=== PATIENT | female | born 1980 | race Caucasian/White ===

== ENCOUNTER 2017-06-06 16:05 | Emergency (ER) | payer BC ==
[~2017-06-06] VITALS: Ht 165.1 cm; Wt 64.0 kg
[2017-06-06 16:16] VITALS: BP 102/68
[2017-06-06] MEDS ORDERED: LIDOCAINE 1%, 20ML ONE (16:28)
[2017-06-06] MEDS ORDERED: LIDOCAINE 1%, 20ML SQ ONE (16:30)
[2017-06-06] MEDS ORDERED: LIDOCAINE 2% VISCOUS, 100ML MM ONE (16:30)
[2017-06-06] MEDS ORDERED: BACITRACIN ZINC OINT 500U/GM, 0.9 GM TP ONE (16:30)
[2017-06-06] MEDS ORDERED: LIDOCAINE GEL 2%, 5ML ONE (16:33)
[2017-06-06] MEDS ORDERED: PLEASE ENTER ALLERGIES MC SCH ×2 (17:00)
[2017-06-06] MEDS ORDERED: LIDOCAINE 2% VISCOUS 15 ML UDC MM ONE (17:00)
[2017-06-06] MEDS ORDERED: BACITRACIN ZINC OINT 500U/GM, 0.9 GM ONE (17:26)
== END 2017-06-06 17:50 | disposition home or self-care (01) ==
LOC: ED 17:39
DX: S51.811A Laceration without foreign body of right forearm, initial encounter (principal); S40.211A Abrasion of right shoulder, initial encounter; S70.211A Abrasion, right hip, initial encounter; V19.9XXA Pedal cyclist (driver) (passenger) injured in unspecified traffic accident, initial encounter; Y93.55 Activity, bike riding; Y99.8 Other external cause status; Y92.488 Other paved roadways as the place of occurrence of the external cause
CPT/HCPCS: 12002; 99283

== ENCOUNTER 2019-05-01 12:36 | Outpatient (CLI) | payer OTHER | END 2019-05-01 23:59 | disposition home or self-care (01) | LOC: LAB 12:36 | PROVIDERS: ATTEND Family Medicine | DX: E04.9 Nontoxic goiter, unspecified (principal) | CPT/HCPCS: 36415; 80053; 80061; 84439; 84443; 84480; 85025 ==

== ENCOUNTER 2019-09-18 09:10 | Outpatient (CLI) | payer OTHER | END 2019-09-18 23:59 | disposition home or self-care (01) | LOC: LAB 09:10 | PROVIDERS: ATTEND Obstetrics & Gynecology | DX: O09.512 Supervision of elderly primigravida, second trimester (principal); Z3A.00 Weeks of gestation of pregnancy not specified | CPT/HCPCS: 36415; 82105; 82677; 84702; 86336 ==

== ENCOUNTER → 2019-09-22 | Outpatient (CLI) | payer OTHER | END | disposition home or self-care (01) | LOC: LAB 17:28 | PROVIDERS: ATTEND Student in an Organized Health Care Education/Training Program | DX: O9A.212 Injury, poisoning and certain other consequences of external causes complicating pregnancy, second trimester (principal); O26.892 Other specified pregnancy related conditions, second trimester; Z67.91 Unspecified blood type, Rh negative; Z3A.00 Weeks of gestation of pregnancy not specified | CPT/HCPCS: 36415; 85460; 86850; 86900 ==

== ENCOUNTER → 2019-10-04 | Outpatient (CLI) | payer OTHER | END | disposition home or self-care (01) | LOC: CFH 10:26 | PROVIDERS: ATTEND Obstetrics & Gynecology | CPT/HCPCS: 76805 ==

== ENCOUNTER → 2019-11-15 | Outpatient (CLI) | payer OTHER ==
[2019-11-15 19:03] LABS: MEAN CORPUSCULAR HEMOGLOBIN 32.8 pg (27.0-34.8); MEAN CORPUSCULAR VOLUME 96.6 fL (80-100); PLATELET COUNT 218 x10^3/uL (130-400); RED CELL DISTRIBUTION WIDTH 13.1 % (9.6-15.2)
== END | disposition home or self-care (01) ==
LOC: LAB 17:21
PROVIDERS: ATTEND Obstetrics & Gynecology
DX: Z34.82 Encounter for supervision of other normal pregnancy, second trimester (principal); Z3A.27 27 weeks gestation of pregnancy
CPT/HCPCS: 36415; 82950; 84443; 85027; 86850; 86900

== ENCOUNTER 2020-01-16 22:23 | Outpatient (CLI) | payer OTHER ==
[2020-01-16 22:57] LABS: BASOPHILS # (AUTO) 0.04 x10^3/uL (0-0.1); BASOPHILS % (AUTO) 1 % (0-1); EOSINOPHILS # (AUTO) 0.09 x10^3/uL (0-0.4); EOSINOPHILS % (AUTO) 1 % (1-7); LYMPHOCYTES # (AUTO) 2.46 x10^3/uL (1-3.4); LYMPHOCYTES % (AUTO) 32 % (22-44); MD NO; MEAN CORPUSCULAR HEMOGLOBIN 33.6 pg (27.0-34.8); MEAN CORPUSCULAR HGB CONC 34.6 g/dL (32.4-35.8); MEAN CORPUSCULAR VOLUME 97.1 fL (80-100); MEAN PLATELET VOLUME 8.6 fL (7.4-10.4); MONOCYTES # (AUTO) 0.57 x10^3/uL (0.2-0.8); MONOCYTES % (AUTO) 8 % (2-9); NEUTROPHILS # (AUTO) 4.43 x10^3/uL (1.8-6.8); NEUTROPHILS % (AUTO) 58 % (42-75); PLATELET COUNT 216 x10^3/uL (130-400); RED BLOOD COUNT 3.67 x10^6/uL (3.82-5.3); RED CELL DISTRIBUTION WIDTH 13.5 % (9.6-15.2)
== END 2020-01-16 23:59 | disposition home or self-care (01) ==
LOC: LAB 22:23
PROVIDERS: ATTEND Family Medicine
DX: Z34.83 Encounter for supervision of other normal pregnancy, third trimester (principal); Z3A.00 Weeks of gestation of pregnancy not specified
CPT/HCPCS: 36415; 85025; 86592

== ENCOUNTER 2020-10-18 13:50 | Emergency (ER) | payer OTHER ==
[~2020-10-18] VITALS: Ht 165.1 cm; Wt 69.8 kg
[2020-10-18 13:53] VITALS: BP 99/61
--- NOTE | 2020-10-18 14:02 | NUR ---
DISCUSSION WITH DR GUZMAN AND MALENA PHELPS REGARDING PT'S REQUEST. PT TO BE SEEN IN TRIAGE.
== END 2020-10-18 14:18 | disposition home or self-care (01) ==
LOC: ED 14:12
DX: J06.9 Acute upper respiratory infection, unspecified (principal); Z20.822 Contact with and (suspected) exposure to COVID-19
CPT/HCPCS: 87635; 99283

== ENCOUNTER 2021-06-30 10:17 | Emergency (ER) | payer OTHER ==
[~2021-06-30] VITALS: Ht 165.1 cm; Wt 65.5 kg
[2021-06-30 10:45] VITALS: BP 100/62
== END 2021-06-30 11:21 | disposition home or self-care (01) ==
LOC: ED 11:15
DX: J02.8 Acute pharyngitis due to other specified organisms (principal); Z20.822 Contact with and (suspected) exposure to COVID-19; R51.9 Headache, unspecified
CPT/HCPCS: 87081; 87635; 87880; 99283; U0003; U0005